=== PATIENT | female | born 1945 | race African-American/Black ===

== ENCOUNTER 2018-06-20 17:16 | Inpatient (IN) | payer OTHER ==
[2018-06-20 17:23] VITALS: BMI 16.6
[2018-06-20] MEDS ORDERED: methylPREDNISolone NA SUCC 125 MG/2 ML VIAL IVPB ONE (17:36)
[2018-06-20] MEDS ORDERED: MAGNESIUM SULF 50% (8.12 MEQ/2 ML-1 GM VIAL) IVPB ONE (17:36)
[2018-06-20] MEDS ORDERED: ALBUTEROL SO4 2.5/IPRATROPIUM 0.5 INH SOL 3 ML VIAL.NEB. NEB ONE ×2 (17:37→20:35)
[2018-06-20] MEDS ORDERED: MAGNESIUM 1GM/D5W - 2 GM/200 ML IVPB IVPB ONE (17:38)
[2018-06-20] MEDS ORDERED: methylPREDNISolone NA SUCC 125 MG/2 ML VIAL ONE (17:38)
[2018-06-20] MEDS: ALBUTEROL SO4 2.5/IPRATROPIUM 0.5 INH SOL 3 ML VIAL.NEB. NEB SCH ×5 (17:38→20:48)
--- NOTE | 2018-06-20 17:39 | PDOC ---
Attending Attestation - Resident Resident Name: ElieVirginia - ED Attending Attestation I have performed the following: I have examined & evaluated the patient, The case was reviewed & discussed with the resident, I agree w/resident's findings & plan, Exceptions are as noted - HPI HPI: 06/20/18 19:16 The patient is a 72 year old female with past medical history of hypertension, COPD (intubated in the past), CAD s/p stents, brain aneurysm who presents with COPD exacerbation x1.5 days. She complains of worsening SOB, wheezing and cough without relief with Prednisone 30mg or Atrovent nebulizers. Denies any fever, chills, nausea, vomiting, diarrhea, chest pain, leg swelling or urinary complaints. - Physicial Exam PE: 06/20/18 19:16 agree with resident exam - Medical Decision Making 06/20/18 19:17 72yo F hx COPD presents to the ED with SOB. Vitals with elevated BP, hypoxic, tachypnea on arrival. Exam with diminished BS b/l and increased WOB. Pt states this feels like her COPD. Pt placed on bipap immediately with in line nebs. Pt also has gotten steroids, duonebs, Mg with imporvement in her breathing. ABG shows mild acidosis to pH 7.35, CO2 40s consistent with mild retention CXR with no evidence of infiltrates Plan to keep pt on bipap, recheck ABG, admit
--- NOTE | 2018-06-20 17:53 | PDOC ---
History of Present Illness - General Chief Complaint: Shortness of Breath Stated Complaint: TROUBLE BREATHING,COPD STAGE YELLOW Time Seen by Provider: 06/20/18 17:25 History Source: Patient Exam Limitations: No Limitations - History of Present Illness Initial Comments: 06/20/18 17:39 72YOF with h/o severe COPD (intubated once in the past in 2014, multiple ICU admissions for this), CAD (s/p stenting), HTN, and brain aneurysm; p/w 1.5 days worsening SOB, wheezing, and cough like all her prior COPD exacerbations. She began taking prednisone from a prior prescription 2 days ago without relief; took 30 mg today. States she tried using her Atrovent nebs at home also without relief. Denies f/c/n/v/d/c, chest pain, abdominal pain, back pain, lightheadedness, leg swelling, orthopnea, or other symptoms. Past History - Past Medical History Allergies/Adverse Reactions: Allergies Allergy/AdvReac Type Severity Reaction Status Date / Time No Known Allergies Allergy Verified 06/20/18 17:22 Home Medications: Ambulatory Orders Amlodipine Besylate [Norvasc -] 5 mg PO DAILY 06/20/18 Aspirin [Aspirin EC] 81 mg PO DAILY 06/20/18 Benzonatate [Tessalon Pearls -] 200 mg PO TID 06/20/18 Fluticasone/Vilanterol [Breo Ellipta 200-25 Mcg INH] 1 puff IH DAILY 06/20/18 Hydroxyzine HCl 25 mg PO PRN 06/20/18 Ipratropium 0.02% Nebulizer [Atrovent] 1 neb NEB TID 06/20/18 Lisinopril [Prinivil] 20 mg PO DAILY 06/20/18 Oxybutynin Chloride [Ditropan Xl] 10 mg PO DAILY 06/20/18 Prednisone 10 mg PO DAILY 06/20/18 Asthma: Yes Cardiac Disorders: Yes COPD: Yes HTN: Yes - Surgical History Abdominal Surgery: Yes Cardiac Surgery: Yes (STENTS: 06/23/14) - Suicide/Smoking/Psychosocial Hx Smoking History: Current every day smoker Have you smoked in the past 12 months: Yes Number of Cigarettes Smoked Daily: 20 If you are a former smoker, when did you quit?: 1 year ago Information on smoking cessation initiated: No 'Breaking Loose' booklet given: 04/28/15 Hx Alcohol Use: No Drug/Substance Use Hx: No Substance Use Type: None Respiratory Specific PMHX - Complaint Specific PMHX Angina: Yes Review of Systems - Review of Systems Able to Perform ROS?: Yes Comments:: 06/20/18 17:43 GEN: no fever, chills, malaise, generalized weakness, or weight change HEENT: no ear pain, sore throat, vision change, or eye pain CV: no chest pain, palpitations, lightheadedness, syncope, or edema RESP: cough, wheezing, SOB GI: no abdominal pain, nausea, vomiting, diarrhea, constipation, or white/black/ bloody stool : no dysuria, hematuria, incontinence, retention, bleeding, or discharge MSK: no neck/back pain, muscle weakness/pain, or joint swelling/pain NEURO: no headache, seizure, vertigo, numbness, tingling, or focal weakness PSYCH: no substance use, no behavior change SKIN: no jaundice, no rash ROS otherwise negative except as noted in HPI *Physical Exam - Vital Signs Last Vital Signs Temp Pulse Resp BP Pulse Ox 98.1 F 138 H 24 H 213/118 H 83 L 06/20/18 17:17 06/20/18 17:17 06/20/18 17:17 06/20/18 17:17 06/20/18 17:17 - Physical Exam Comments: 06/20/18 17:43 GENERAL: moderate distress, moderate respiratory distress, appears frustrated, A /Ox4, no distress, answers questions appropriately, thin, son at bedside HEENT: PERRLA, EOMI, moist mucous membranes NECK/BACK: no midline ttp, no spinal stepoff or deformity, no hematoma, full ROM , neck supple CARDIOVASCULAR: regular rate/rhythm, normal S1S2, no MGR, strong peripheral pulses, capillary refill <2 seconds, extremities wwp, no edema LUNGS/RESPIRATORY: tachypneic, prolonged expiratory phase, tripoding, accessory muscle use, poor air movement, faint wheezes diffusely GI/ABDOMEN: symmetric [id number], normoactive BS, soft, no ttp, no midline pulsatile masses : no CVA tenderness EXTREMITIES: no muscle atrophy, no acute deformity SKIN: warm and dry, no pallor, no jaundice, no rash, no bruising, no skin breakdown, no cuts, no lesions NEUROLOGICAL: GCS 15, CN II-XII grossly intact, 5/5 strength proximally and distally, no facial droop Moderate Sedation - Procedure Monitoring Vital Signs: Procedure Monitoring Vital Signs Temperature 98.1 F 06/20/18 17:17 Pulse Rate 138 H 06/20/18 17:17 Respiratory Rate 24 H 06/20/18 17:17 Blood Pressure 213/118 H 06/20/18 17:17 O2 Sat by Pulse Oximetry (%) 83 L 06/20/18 17:17 Heart Score/ECG Review #1 06/20/18 17:46 Sinus tachycardia, rate 116, normal axis and intervals, right atrial enlargement , no ischemic ST-T changes ED Treatment Course - LABORATORY CBC & Chemistry Diagram: 06/21/18 10:00 06/21/18 10:00 - RADIOLOGY Radiology Studies Ordered: Category Date Time Status CHEST X-RAY PORTABLE* [RAD] Stat Radiology 06/20/18 17:36 Ordered Medical Decision Making - Medical Decision Making 06/20/18 17:55 Pt with h/o COPD p/w SOB and respiratory distress like their prior COPD exacerbation. Initial Vital Signs Temp Pulse Resp BP Pulse Ox 98.1 F 138 H 24 H 213/118 H 83 L 06/20/18 17:17 06/20/18 17:17 06/20/18 17:17 06/20/18 17:17 06/20/18 17:17 Exam: As noted in Physical Exam section. DDX IBNLT: COPD, bronchitis, asthma, viral URI, influenza, PNA, PTX, CHF, ACS, PE, pericarditis, pneumonitis, allergic rxn W/U ordered: CBCD CMP Mg Phos Cardiac panel Blood gas EKG CXR TX ordered: DuoNebs SoluMedrol (if likely admission) Magnesium Supplemental O2 to keep pulse ox at 92% Will consider BiPAP, IM terbutaline, Magnesium 2 GM IV over 20 min if necessary Will attempt to avoid intubation d/t high risk of complications with COPD Pt. If intubation is indicated, will keep low VT, low RR, minimize auto PEEP, prolong E:I. Patient will need admission given her complex history and marked respiratory distress. EKG: Reviewed; results as noted in ECG Review section. CXR: Hyperinflation but nothing acute. Laboratory Tests 06/20/18 06/20/1819 17:40 17:40 18:05 WBC 8.6 RBC 4.26 Hgb 11.8 Hct 35.7 MCV 83.9 MCH 27.7 MCHC 33.0 RDW 16.7 H Plt Count 424 MPV 7.1 L Absolute Neuts (auto) 6.8 Neutrophils % 79.0 Lymphocytes % 14.0 D Monocytes % 6.9 D Eosinophils % 0.0 Basophils % 0.1 D Nucleated RBC % 0 Puncture Site Right radial ABG pH 7.34 L ABG pCO2 at Pt Temp 48.7 H D ABG pO2 at Pt Temp 173.0 H* D ABG HCO3 25.5 ABG O2 Sat (Measured) 99.0 H ABG O2 Content 15.8 ABG Base Excess -0.1 Ervin Test Positive Carboxyhemoglobin 0.8 Methemoglobin 0.2 L Oxygen Flow Rate Yes Vent Mode Bi pap s/t Sodium 142 Potassium 4.1 Chloride 106 Carbon Dioxide 29 Anion Gap 7 L BUN 19 H Creatinine 0.9 Creat Clearance w eGFR > 60 Random Glucose 148 H Calcium 9.2 Phosphorus 3.7 Magnesium 1.9 Total Bilirubin 0.3 AST 17 ALT 19 Alkaline Phosphatase 84 Creatine Kinase 109 Troponin I < 0.02 Total Protein 7.6 Albumin 3.8 Reassessment: Patient appears much more comfortable, smiling, continues on BiPAP. Vital Signs - 24 hr 06/20/18 06/20/18 06/20/18 17:17 17:45 18:00 Temperature 98.1 F Pulse Rate 138 H Pulse Rate [ Apical] Respiratory 24 H Rate Blood Pressure 213/118 H Blood Pressure [Right Arm] O2 Sat by Pulse 83 L 98 99 Oximetry (%) 06/20/18 18:35 Temperature Pulse Rate Pulse Rate [ 115 H Apical] Respiratory 16 Rate Blood Pressure Blood Pressure 165/97 [Right Arm] O2 Sat by Pulse 100 Oximetry (%) 06/20/18 18:30 The Pts symptoms persist despite ED treatments. They are not safe for discharge from the ED at this time. They require further hospital observation, workup, and treatment. Microblog sent to [facility] for admission. Blank Decision to Admit order is placed per ED protocol. 06/20/18 19:20 Spoke with admitting team medical detail representative Liliana Paris, in agreement Pt to be admitted. Decision to Admit order corrected with admitting team covering attendings name. *DC/Admit/Observation/Transfer Diagnosis at time of Disposition: COPD exacerbation - Discharge Dispostion Condition at time of disposition: Guarded Decision to Admit order: Yes - Referrals - Patient Instructions - Post Discharge Activity
[2018-06-20 18:08] LABS: BASO % 0.1 % (0-2.0); HEMATOCRIT 35.7 % (32.4-45.2); HEMOGLOBIN 11.8 GM/dL (10.7-15.3); MCH 27.7 pg (25.7-33.7); MEAN CELL VOLUME 83.9 fl (80-96); MEAN PLT VOLUME 7.1 fl (7.5-11.1); MONO % 6.9 % (3.8-10.2); PLATELET COUNT 424 K/MM3 (134-434); RBC 4.26 M/mm3 (3.60-5.2); RDW 16.7 % (11.6-15.6); WHITE BLOOD COUNT 8.6 K/mm3 (4.0-10.0)
[2018-06-20 18:11] LABS: ARTERIAL BLOOD GAS BASE EXCESS -0.1 meq/l (-2-2); ARTERIAL BLOOD GAS PCO2 48.7 mmHg (35-45); ARTERIAL BLOOD GAS pH 7.34 (7.35-7.45); CARBOXYHEMOGLOBIN 0.8 gm% (0.5-2.0)
[2018-06-20 18:16] LABS: ALLENS TEST POSITIVE
[2018-06-20 18:47] LABS: ALBUMIN 3.8 g/dl (3.4-5.0); ALK PHOS 84 U/L (45-117); ANION GAP 7 MMOL/L (8-16); BILIRUBIN,TOTAL 0.3 mg/dL (0.2-1); BLOOD UREA NITROGEN 19 mg/dL (7-18); CALCIUM 9.2 mg/dL (8.5-10.1); CHLORIDE 106 mmol/L (98-107); CO2 29 mmol/L (21-32); CREATININE 0.9 mg/dL (0.55-1.3); GLUCOSE,RANDOM 148 mg/dL (74-106); MAGNESIUM 1.9 mg/dL (1.8-2.4); PHOSPHOROUS 3.7 mg/dL (2.5-4.9); POTASSIUM 4.1 mmol/L (3.5-5.1); SGOT/AST 17 U/L (15-37); SGPT/ALT 19 U/L (13-61); SODIUM 142 mmol/L (136-145); TOT PROT 7.6 g/dl (6.4-8.2)
[2018-06-20] MEDS ORDERED: ALBUTEROL SO4 0.083% IH SOL 2.5 MG/3 ML VIAL.NEB. NEB PRN (19:58)
[2018-06-20] MEDS ORDERED: methylPREDNISolone NA SUCC 40 MG/1 ML VIAL IVPUSH SCH (20:15)
--- NOTE | 2018-06-20 20:39 | HP ---
CHIEF COMPLAINT: SOB x 3 days PCP: HISTORY OF PRESENT ILLNESS: 72 y/o F with PMH past severe COPD exacerbations (intubated, in ICU 2014), on 1.5L home 02 at night, never on BiPAP, CAD s/p 2 stents (2014), HTN, brain aneurysm (20 yrs ago; clipped), who presents to the ED c/o SOB over the past three days. As per pt, she lives in [place] with her grandchildren, however has been in the [place] area the last month visiting her son. States that her grandson was sick with a "bronchial illness" w/cough, and she subsequently also developed a productive cough (clear sputum, no blood). Over the past three days , she endorses SOB and wheezing which was not alleviated by atrovent nebs. In the interim, she also spoke to her pulm, Dr. Mcnamara who recommended a steroid taper for her sx. She was currently on the first day of the 30mg dose of prednisone (already took 40,40), however since it was not working, she came to the ED for further evaluation. Denies KOTHARI, fever, chills, chest pain or pressure , or changes in urinary or bowel function. As per ED staff, when she came in she was tripoding, SOB and hypoxic into the low 80's while on 2-3 L NC 02. Has not been able to take her Breo over the past two weeks as well, since her dog chewed it. Also, endorses COPD exacerbations when exposed to sick contacts. ER course was notable for: (1) Mg, medrol 125, nebs (2) BiPAP 8/5, 40%, RR 8 (3) Recent Travel: from [place] one month ago PAST MEDICAL HISTORY: as above PAST SURGICAL HISTORY: CAD s/p 2 stents (2014), lap tamara 1979's, 2 c-sections Social History: used to work for [employer] in [employer] Smokin pack/day x 50 yrs. states that she has "mostly quit" however sometimes has a few cigarettes Alcohol: denies Drugs: denies Family History: adopted Allergies No Known Allergies Allergy (Verified 06/20/18 17:22) HOME MEDICATIONS: Home Medications Medication Instructions Recorded Amlodipine Besylate [Norvasc -] 5 mg PO DAILY 06/20/18 Aspirin [Aspirin EC] 81 mg PO DAILY 06/20/18 Benzonatate [Tessalon Pearls -] 200 mg PO TID 06/20/18 Fluticasone/Vilanterol [Breo 1 puff IH DAILY 06/20/18 Ellipta 200-25 Mcg INH] Hydroxyzine HCl 25 mg PO PRN 06/20/18 Ipratropium 0.02% Nebulizer 1 neb NEB TID 06/20/18 [Atrovent] Lisinopril [Prinivil] 20 mg PO DAILY 06/20/18 Oxybutynin Chloride [Ditropan Xl] 10 mg PO DAILY 06/20/18 Prednisone was put on steroid taper by her pulm 40mg,40mg, was on 30mg today. 06/20/18 medications have been verified with patient verbally REVIEW OF SYSTEMS CONSTITUTIONAL: Absent: fever, chills, diaphoresis, generalized weakness, malaise, loss of appetite, weight change HEENT: Absent: rhinorrhea, nasal congestion, throat pain, throat swelling, difficulty swallowing, mouth swelling, ear pain, eye pain, visual changes CARDIOVASCULAR: Absent: chest pain, syncope, palpitations, irregular heart rate, lightheadedness , peripheral edema RESPIRATORY: +cough, SOB, wheezing Absent: dyspnea with exertion, orthopnea, stridor, hemoptysis GASTROINTESTINAL: Absent: abdominal pain, abdominal distension, nausea, vomiting, diarrhea, constipation, melena, hematochezia GENITOURINARY: Absent: dysuria, frequency, urgency, hesitancy, hematuria, flank pain, genital pain MUSCULOSKELETAL: Absent: myalgia, arthralgia, joint swelling, back pain, neck pain SKIN: Absent: rash, itching, pallor HEMATOLOGIC/IMMUNOLOGIC: Absent: easy bleeding, easy bruising, lymphadenopathy, frequent infections ENDOCRINE: Absent: unexplained weight gain, unexplained weight loss, heat intolerance, cold intolerance NEUROLOGIC: Absent: headache, focal weakness or paresthesias, dizziness, unsteady gait, seizure, mental status changes, bladder or bowel incontinence PSYCHIATRIC: Absent: anxiety, depression, suicidal or homicidal ideation, hallucinations. PHYSICAL EXAMINATION Vital Signs 06/20/18 17:17 Temperature 98.1 F Pulse Rate 138 H Pulse Rate [ Apical] Respiratory 24 H Rate Blood Pressure 213/118 H Blood Pressure [Right Arm] O2 Sat by Pulse 83 L Oximetry (%) 06/20/18 18:35 Temperature Pulse Rate Pulse Rate [ 115 H Apical] Respiratory 16 Rate Blood Pressure Blood Pressure 165/97 [Right Arm] O2 Sat by Pulse 100 Oximetry (%) GENERAL: Sitting up in bed, on BiPAP. In good spirits, in NAD HEAD: Normal with no signs of trauma. EYES: Pupils equal, round and reactive to light, extraocular movements intact, sclera anicteric, conjunctiva clear. EARS, NOSE, THROAT: Ears normal, nares patent, oropharynx clear without exudates. Moist mucous membranes. NECK: Normal range of motion, supple LUNGS: +wheezing b/l appreciated anteriorly. no accessory m usage HEART: +tachycardic rate and rhythm, normal S1 and S2 without murmur, rub or gallop. ABDOMEN: Soft, nontender, not distended, normoactive bowel sounds, no guarding, no rebound, no masses LOWER EXTREMITIES: 2+ pt pulses, warm, well-perfused. No calf tenderness. No peripheral edema. NEUROLOGICAL: Cranial nerves II-XII intact. normal speech. 5/5 motor strength UE, LE. sensation intact PSYCHIATRIC: Cooperative. Good eye contact. SKIN: Warm, dry, normal turgor Laboratory Results - last 24 hr 06/20/18 06/20/18 06/20/18 17:40 17:40 18:05 WBC 8.6 RBC 4.26 Hgb 11.8 Hct 35.7 MCV 83.9 MCH 27.7 MCHC 33.0 RDW 16.7 H Plt Count 424 MPV 7.1 L Absolute Neuts (auto) 6.8 Neutrophils % 79.0 Lymphocytes % 14.0 D Monocytes % 6.9 D Eosinophils % 0.0 Basophils % 0.1 D Nucleated RBC % 0 Puncture Site Right radial ABG pH 7.34 L ABG pCO2 at Pt Temp 48.7 H D ABG pO2 at Pt Temp 173.0 H* D ABG HCO3 25.5 ABG O2 Sat (Measured) 99.0 H ABG O2 Content 15.8 ABG Base Excess -0.1 Ervin Test Positive Carboxyhemoglobin 0.8 Methemoglobin 0.2 L Oxygen Flow Rate Yes Vent Mode Bi pap s/t Sodium 142 Potassium 4.1 Chloride 106 Carbon Dioxide 29 Anion Gap 7 L BUN 19 H Creatinine 0.9 Creat Clearance w eGFR > 60 Random Glucose 148 H Calcium 9.2 Phosphorus 3.7 Magnesium 1.9 Total Bilirubin 0.3 AST 17 ALT 19 Alkaline Phosphatase 84 Creatine Kinase 109 Troponin I < 0.02 Total Protein 7.6 Albumin 3.8 CXR: hyperinflated lung lopez, with R sided atelectasis, no infiltrates. my read - official pending EKG: +sinus tach, RA enlargement, no st-t wave changes. rate 116bpm, Qtc 453ms past chest CT (2014): moderate emphysema/COPD. minimal atelectatic changes and interstitial thickening in the RLL, laterally without evidence of focal infiltrates, pulm nodules, pneumothorax or pleural effusion. s/p tamara. ASSESSMENT/PLAN: 72 y/o F with PMH past severe COPD exacerbations (intubated, in ICU 2014), on 1.5L home 02 at night, never on BiPAP, CAD s/p 2 stents (2014), HTN, brain aneurysm (20 yrs ago; clipped), who presents to the ED c/o SOB over the past three days. #COPD exacerbation likely 2/2 URI -with recent sick contact- grandson, and typical presentation. may also be 2/2 breo noncompliance over last 2 weeks- without coverage. tripoding, wheezing, SOB. greatly improved with medrol 125mg -since hx past intubation, will start on medrol 60mg IVP TID -weaned off bipap, ABG close to WNL . put on 2L NC 02. keep 02 88-92%. can keep biPAP PRN on standby if sat drops -c/w duonebs, nebs -can start breo on d/c, as do not need extra ICS at this time as on medrol #CAD s/p 2 stents (2014) -c/w asa 81mg qd #HTN- uncontrolled -likely 2/2 noncompliance; pt was unable to take BP meds d/t inability to ambulate from SOB -c/w norvasc, lisinopril #F/E/N no indication for fluids at this time continue to follow lytes NPO except meds for now d/t resp status. can advance in AM if continues to improve #PPX DVT: SCD's #Dispo med-surg obs Visit type - Emergency Visit Emergency Visit: Yes ED Registration Date: 06/20/18 Care time: The patient presented to the Emergency Department on the above date and was hospitalized for further evaluation of their emergent condition. - New Patient This patient is new to me today: Yes Date on this admission: 06/21/18 - Critical Care Critical Care patient: No
--- NOTE | 2018-06-20 20:48 | PN ---
Teaching Attending Note Name of Resident: Liliana Paris ATTENDING PHYSICIAN STATEMENT I saw and evaluated the patient. I reviewed the resident's note and discussed the case with the resident. I agree with the resident's findings and plan as documented. SUBJECTIVE: This is a 72 year old woman with a history of COPD, chronic hypoxic respiratory failure, CAD, stents, HTN, brain aneurysm and clipping who comes to the ED complaining of SOB. She lives in [place] with her grandchildren. She has been around her grandson who has had a cough. She has been visiting her son in [place] for the past month. She has not used her Breo in about 2 weeks. She has had a productive cough with clear sputum. Three days ago, she started wheezing and began to feel SOB. She used Atrovent nebulizer treatments without improvement. She spoke to her home health care social worker in [place] who prescribed a Prednisone taper. She took 40 mg daily x 2 days, and today, started 30 mg. She still didn't feel beter, so she came to the ED. She denies fever, chills, chest pain, palpitations , hemoptysis. In the ED, she was treated with SoluMedrol, magnesium sulfate, DuoNeb, and BiPAP. She is feeling better. OBJECTIVE: Vital Signs Period Temp Pulse Resp BP Sys/Nielsen Pulse Ox Last 24 Hr 98.1 F 115-138 16-24 165-213/97-118 83-100 HEART: S1S2, tachycardic LUNGS: Bilateral rhonchi and expiratory wheezes ABDOMEN: Soft, non-tender, non-distended, normal BS EXTREMITIES: No edema Laboratory Tests 06/20/18 06/20/18 06/20/18 17:40 17:40 18:05 WBC 8.6 RBC 4.26 Hgb 11.8 Hct 35.7 MCV 83.9 MCH 27.7 MCHC 33.0 RDW 16.7 H Plt Count 424 MPV 7.1 L Absolute Neuts (auto) 6.8 Neutrophils % 79.0 Lymphocytes % 14.0 D Monocytes % 6.9 D Eosinophils % 0.0 Basophils % 0.1 D Nucleated RBC % 0 Puncture Site Right radial ABG pH 7.34 L ABG pCO2 at Pt Temp 48.7 H D ABG pO2 at Pt Temp 173.0 H* D ABG HCO3 25.5 ABG O2 Sat (Measured) 99.0 H ABG O2 Content 15.8 ABG Base Excess -0.1 Ervin Test Positive Carboxyhemoglobin 0.8 Methemoglobin 0.2 L Oxygen Flow Rate Yes Vent Mode Bi pap s/t Sodium 142 Potassium 4.1 Chloride 106 Carbon Dioxide 29 Anion Gap 7 L BUN 19 H Creatinine 0.9 Creat Clearance w eGFR > 60 Random Glucose 148 H Calcium 9.2 Phosphorus 3.7 Magnesium 1.9 Total Bilirubin 0.3 AST 17 ALT 19 Alkaline Phosphatase 84 Creatine Kinase 109 Troponin I < 0.02 Total Protein 7.6 Albumin 3.8 Home Medications Medication Instructions Recorded Amlodipine Besylate [Norvasc -] 5 mg PO DAILY 06/20/18 Aspirin [Aspirin EC] 81 mg PO DAILY 06/20/18 Benzonatate [Tessalon Pearls -] 200 mg PO TID 06/20/18 Fluticasone/Vilanterol [Breo 1 puff IH DAILY 06/20/18 Ellipta 200-25 Mcg INH] Hydroxyzine HCl 25 mg PO PRN 06/20/18 Ipratropium 0.02% Nebulizer 1 neb NEB TID 06/20/18 [Atrovent] Lisinopril [Prinivil] 20 mg PO DAILY 06/20/18 Oxybutynin Chloride [Ditropan Xl] 10 mg PO DAILY 06/20/18 Prednisone 10 mg PO DAILY 06/20/18 ASSESSMENT AND PLAN: This is a 72 year old woman with a history of COPD, chronic hypoxic respiratory failure, CAD, stents, HTN, brain aneurysm and clipping who presented to the ED with a productive cough, SOB, and wheezing. 1. Acute on chronic hypercapnic and hypoxic respiratory failure secondary to acute exacerbation of COPD - Start SoluMedrol, DuoNeb - Hold Breo, Atrovent - Oxygen to maintain saturation >90% - BiPAP as needed 2. CAD, history of stents - Continue aspirin 3. HTN - Continue lisinopril, Norvasc 4. History of brain aneurysm and clipping
[2018-06-21] MEDS: methylPREDNISolone NA SUCC 40 MG/1 ML VIAL IVPUSH SCH ×3 (01:11→18:39)
[2018-06-21] MEDS: ALBUTEROL SO4 2.5/IPRATROPIUM 0.5 INH SOL 3 ML VIAL.NEB. NEB SCH ×4 (07:20→20:15)
--- NOTE | 2018-06-21 08:10 | PN ---
Progress Note, Physician Chief Complaint: Feels improved, still SOB History of Present Illness: 72 y/o F with PMH past severe COPD exacerbations (intubated, in ICU 2014), on 1.5L home 02 at night, never on BiPAP, CAD s/p 2 stents (2014), HTN, brain aneurysm (20 yrs ago; clipped), who presents to the ED c/o SOB over the past three days. - Current Medication List Current Medications: Active Medications Albuterol Sulfate (Ventolin 0.083% Nebulizer Soln -) 1 amp NEB Q6H PRN PRN Reason: SHORTNESS OF BREATH Albuterol/Ipratropium (Duoneb -) 1 amp NEB RQID SHAHEED Last Admin: 06/20/18 20:48 Dose: 1 amp Amlodipine Besylate (Norvasc -) 5 mg PO DAILY SHAHEED Aspirin (Ecotrin -) 81 mg PO DAILY SHAHEED Lisinopril (Prinivil) 20 mg PO DAILY [facility] Methylprednisolone Sodium Succinate (Solu-Medrol -) 60 mg IVPUSH Q8H-IV SHAHEED Last Admin: 06/21/18 01:11 Dose: 60 mg Solifenacin (Vesicare -) 5 mg PO DAILY [facility] - Objective Vital Signs: Vital Signs Temperature 98.4 F 06/21/18 06:00 Pulse Rate 105 H 06/21/18 06:00 Respiratory Rate 18 06/21/18 06:00 Blood Pressure 138/70 06/21/18 06:00 O2 Sat by Pulse Oximetry (%) 97 06/21/18 07:00 Elderly F not in distress HEENT: Mm moist, no anemia, PERRLA EOMI NECK: No JVd No Bruit CHEST: Minimal wheezes + CVS; S1S2 R ABD: No distention, non tender Bs + EXT: No edema feet, no calf tenderness, Pulses + [employer]: AOX3 non focal Constitutional: Yes: Well Nourished Labs: CBC, BMP 06/20/18 17:40 06/20/18 17:40 Problem List - Problems (1) COPD exacerbation Assessment/Plan: On home O2 improving on current mangement cont IV steroids and Nebs F/U Respiratory recommondations Code(s): J44.1 - CHRONIC OBSTRUCTIVE PULMONARY DISEASE W (ACUTE) EXACERBATION (2) CAD (coronary artery disease) Assessment/Plan: Stable cont ASA Statin and all home meds Code(s): I25.10 - ATHSCL HEART DISEASE OF [place] CORONARY ARTERY W/O ANG PCTRS (3) Anxiety Assessment/Plan: Cont Home meds Code(s): F41.9 - ANXIETY DISORDER, UNSPECIFIED
--- NOTE | 2018-06-21 10:02 | CON.PULM ---
Consult Consult Specialty:: PULM/CCM Referred by:: Hospitalist Reason for Consultation:: SOB - History of Present Illness Chief Complaint: SOB History of Present Illness: 72 F, visiting [place] from [place]. Active smoker, severe COPD on 1.5L home 02 at night for almost 1.5 years, history of intubation in 2014, CAD s/p 2 stents ( 2014), HTN, brain aneurysm (20 yrs ago; clipped). Patient had a CT chest in 08/2017 and 09/2017 (has medical record access on phone) . Moderate emphysema, resolving infiltrates, no nodules or mass lesions. Reports that her grandson has had bronchitis symptoms. She said her dog ate her Breo about 2 weeks ago and she could not refill her meds. She has taken 2 days of Prednisone 40mg as recommended by her principal network architect Dr. Mcnamara. No fever or chills. No hemoptysis. 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 No: Pulmonary Embolus, Sleep Apnea ...: No Psych: Yes: Anxiety - Past Surgical History Past Surgical History: Yes: Cholecystectomy, (x2), Stent (06/2014). No : Colonoscopy (advised mult times by dr. walter/debbi to do so but hasn't) - Alcohol/Substance Use Hx Alcohol Use: No - Smoking History Smoking history: Current every day smoker Have you smoked in the past 12 months: Yes Aproximately how many cigarettes per day: 20 If you are a former smoker, when did you quit?: 1 year ago - Social History History of Recent Travel: No Home Medications - Allergies Allergies/Adverse Reactions: Allergies Allergy/AdvReac Type Severity Reaction Status Date / Time No Known Allergies Allergy Verified 06/20/18 17:22 - Home Medications Home Medications: Ambulatory Orders Amlodipine Besylate [Norvasc -] 5 mg PO DAILY 06/20/18 Aspirin [Aspirin EC] 81 mg PO DAILY 06/20/18 Benzonatate [Tessalon Pearls -] 200 mg PO TID 06/20/18 Fluticasone/Vilanterol [Breo Ellipta 200-25 Mcg INH] 1 puff IH DAILY 06/20/18 Hydroxyzine HCl 25 mg PO PRN 06/20/18 Ipratropium 0.02% Nebulizer [Atrovent] 1 neb NEB TID 06/20/18 Lisinopril [Prinivil] 20 mg PO DAILY 06/20/18 Oxybutynin Chloride [Ditropan Xl] 10 mg PO DAILY 06/20/18 Prednisone 10 mg PO DAILY 06/20/18 Review of Systems - Review of Systems Constitutional: reports: Malaise. denies: Chills, Fever, Loss of Appetite, Night Sweats, Unintentional Wgt. Loss, Weakness Eyes: reports: No Symptoms HENT: reports: No Symptoms Neck: reports: No Symptoms Cardiovascular: reports: Shortness of Breath. denies: Chest Pain, Edema, Palpitations Respiratory: reports: Cough, SOB, SOB on Exertion, Wheezing. denies: Hemoptysis , Snoring Gastrointestinal: reports: No Symptoms Genitourinary: reports: No Symptoms Breasts: reports: No Symptoms Reported Musculoskeletal: reports: No Symptoms Integumentary: reports: No Symptoms Neurological: reports: No Symptoms Endocrine: reports: No Symptoms Hematology/Lymphatic: reports: No Symptoms Psychiatric: reports: No Symptoms Physical Exam Vital Sings: Vital Signs Temperature 98.4 F 06/21/18 06:00 Pulse Rate 105 H 06/21/18 06:00 Respiratory Rate 18 06/21/18 06:00 Blood Pressure 138/70 06/21/18 06:00 O2 Sat by Pulse Oximetry (%) 97 06/21/18 07:00 Constitutional: Yes: Mild Distress, Thin Eyes: Yes: Conjunctiva Clear, EOM Intact HENT: Yes: Atraumatic, Normocephalic Neck: Yes: Supple, Trachea Midline Cardiovascular: Yes: Tachycardia Respiratory: Yes: Accessory Muscle Use, Cough, Diminished, On Nasal O2, Rhonchi , SOB, SOB on Exertion, Tachypnea, Wheezes. No: Rales, Stridor ...Inspection: Yes: WNL ...Clubbing: No Gastrointestinal: Yes: Normal Bowel Sounds, Soft Renal/: Yes: WNL Musculoskeletal: Yes: WNL Extremities: Yes: WNL Edema: No Peripheral Pulses WNL: Yes Integumentary: Yes: WNL Neurological: Yes: WNL, Alert, Oriented ...Motor Strength: WNL Psychiatric: Yes: WNL, Alert, Oriented Labs: CBC, BMP 06/20/18 17:40 06/20/18 17:40 ABG Results ABG pH 7.34 (7.35-7.45) L 06/20/18 18:05 ABG pCO2 at Pt Temp 48.7 mmHg (35-45) H D 06/20/18 18:05 ABG pO2 at Pt Temp 173.0 mmHg (70-100) H* D 06/20/18 18:05 ABG HCO3 25.5 meq/L (22-26) 06/20/18 18:05 ABG O2 Sat (Measured) 99.0 % (90-98.9) H 06/20/18 18:05 ABG O2 Content 15.8 % vol (15-22) 06/20/18 18:05 ABG Base Excess -0.1 meq/l (-2-2) 06/20/18 18:05 Imaging - Results Chest X-ray: Report Reviewed, Image Reviewed Problem List - Problems (1) Smoker Code(s): F17.200 - NICOTINE DEPENDENCE, UNSPECIFIED, UNCOMPLICATED (2) Acute exacerbation of chronic obstructive pulmonary disease (COPD) Code(s): J44.1 - CHRONIC OBSTRUCTIVE PULMONARY DISEASE W (ACUTE) EXACERBATION (3) COPD exacerbation Code(s): J44.1 - CHRONIC OBSTRUCTIVE PULMONARY DISEASE W (ACUTE) EXACERBATION (4) Anxiety Code(s): F41.9 - ANXIETY DISORDER, UNSPECIFIED (5) CAD (coronary artery disease) Code(s): I25.10 - ATHSCL HEART DISEASE OF [place] CORONARY ARTERY W/O ANG PCTRS (6) Stented coronary artery Code(s): Z95.5 - PRESENCE OF CORONARY ANGIOPLASTY IMPLANT AND GRAFT Assessment/Plan IV Medrol due to outpatient prednisone failure Duoneb O2 as needed to maintain saturation: 88% to 92% Would monitor off ABX Check viral screen No smoking discussed Patient to follow with her Supervisor [employer] in [place] Will follow Thank you. Dr Reyes
[2018-06-21] MEDS ORDERED: PT OWN MED DRAWER 7, Y5N ONE (10:07)
[2018-06-21] MEDS: SOLIFENACIN SUCCINATE 5 MG TAB (FP) PO SCH (10:09)
[2018-06-21] MEDS: amLODIPine BESYLATE 5 MG TABLET (FP) PO SCH (10:09)
[2018-06-21] MEDS: ASPIRIN COATED 81 MG TABLET.EC PO SCH (10:09)
[2018-06-21] MEDS: LISINOPRIL 20 MG TABLET (FP) PO SCH (10:09)
[2018-06-21 10:17] LABS: BASO % 0.1 % (0-2.0); HEMATOCRIT 33.1 % (32.4-45.2); LYMPH % 10.4 % (8-40); MCH 27.7 pg (25.7-33.7); MCHC 33.2 g/dl (32.0-36.0); MEAN CELL VOLUME 83.4 fl (80-96); MEAN PLT VOLUME 6.8 fl (7.5-11.1); MONO % 8.4 % (3.8-10.2); NEUT % 81.1 % (42.8-82.8); PLATELET COUNT 400 K/MM3 (134-434); RBC 3.96 M/mm3 (3.60-5.2); RDW 16.7 % (11.6-15.6); WHITE BLOOD COUNT 7.6 K/mm3 (4.0-10.0)
[2018-06-21 10:42] LABS: ANION GAP 10 MMOL/L (8-16); BLOOD UREA NITROGEN 26 mg/dL (7-18); CALCIUM 9.3 mg/dL (8.5-10.1); CHLORIDE 105 mmol/L (98-107); CO2 28 mmol/L (21-32); CREATININE 1.2 mg/dL (0.55-1.3); GLUCOSE,RANDOM 171 mg/dL (74-106); MAGNESIUM 2.3 mg/dL (1.8-2.4); PHOSPHOROUS 4.4 mg/dL (2.5-4.9); POTASSIUM 3.6 mmol/L (3.5-5.1); SODIUM 142 mmol/L (136-145)
[2018-06-22] MEDS: methylPREDNISolone NA SUCC 40 MG/1 ML VIAL IVPUSH SCH ×2 (02:30→10:04)
[2018-06-22] MEDS: ALBUTEROL SO4 2.5/IPRATROPIUM 0.5 INH SOL 3 ML VIAL.NEB. NEB SCH ×4 (07:20→19:56)
[2018-06-22 07:48] LABS: BASO % 0.1 % (0-2.0); HEMOGLOBIN 9.7 GM/dL (10.7-15.3); LYMPH % 10.4 % (8-40); MCHC 32.4 g/dl (32.0-36.0); MEAN CELL VOLUME 83.3 fl (80-96); MEAN PLT VOLUME 6.9 fl (7.5-11.1); MONO % 8.8 % (3.8-10.2); NEUT % 80.7 % (42.8-82.8); PLATELET COUNT 353 K/MM3 (134-434); RBC 3.61 M/mm3 (3.60-5.2); RDW 16.8 % (11.6-15.6); WHITE BLOOD COUNT 9.9 K/mm3 (4.0-10.0)
[2018-06-22 08:12] LABS: ANION GAP 6 MMOL/L (8-16); BLOOD UREA NITROGEN 29 mg/dL (7-18); CALCIUM 8.5 mg/dL (8.5-10.1); CHLORIDE 105 mmol/L (98-107); CO2 31 mmol/L (21-32); CREATININE 0.9 mg/dL (0.55-1.3); GLUCOSE,RANDOM 101 mg/dL (74-106); POTASSIUM 4.1 mmol/L (3.5-5.1); SODIUM 142 mmol/L (136-145)
--- NOTE | 2018-06-22 09:13 | PN ---
Progress Note (short form) - Note Progress Note: Feels better today. Less SOB. Was placed on NIPPV with good effect as she slept well overnight. No CP. Intake & Output 06/19/18 06/20/18 06/21/18 06/22/18 23:59 23:59 23:59 23:59 Intake Total 0 1080 200 Balance 0 1080 200 Weight 97 lb Last Vital Signs Temp Pulse Resp BP Pulse Ox 98.1 F 104 H 20 111/77 96 06/22/18 06:00 06/22/18 06:00 06/22/18 06:00 06/22/18 06:00 06/22/18 06:00 Active Medications Albuterol Sulfate (Ventolin 0.083% Nebulizer Soln -) 1 amp NEB Q6H PRN PRN Reason: SHORTNESS OF BREATH Albuterol/Ipratropium (Duoneb -) 1 amp NEB RQID [facility] Last Admin: 06/22/18 07:20 Dose: 1 amp Amlodipine Besylate (Norvasc -) 5 mg PO DAILY [facility] Last Admin: 06/21/18 10:09 Dose: 5 mg Aspirin (Ecotrin -) 81 mg PO DAILY [facility] Last Admin: 06/21/18 10:09 Dose: 81 mg Lisinopril (Prinivil) 20 mg PO DAILY [facility] Last Admin: 06/21/18 10:09 Dose: 20 mg Methylprednisolone Sodium Succinate (Solu-Medrol -) 60 mg IVPUSH Q8H-IV [facility] Last Admin: 06/22/18 02:30 Dose: 60 mg Solifenacin (Vesicare -) 5 mg PO DAILY [facility] Last Admin: 06/21/18 10:09 Dose: 5 mg Constitutional: Yes: More comfortable today, mildly tachypneic at rest Eyes: Yes: Conjunctiva Clear, EOM Intact HENT: Yes: Atraumatic, Normocephalic Neck: Yes: Supple, Trachea Midline Cardiovascular: Yes: Tachycardia Respiratory: Yes: Cough, Diminished, On Nasal O2, Rhonchi, Tachypnea, Wheezes. No: Rales, Stridor ...Inspection: Yes: WNL ...Clubbing: No Gastrointestinal: Yes: Normal Bowel Sounds, Soft Renal/: Yes: WNL Musculoskeletal: Yes: WNL Extremities: Yes: WNL Edema: No Peripheral Pulses WNL: Yes Integumentary: Yes: WNL Neurological: Yes: WNL, Alert, Oriented ...Motor Strength: WNL Psychiatric: Yes: WNL, Alert, Oriented Labs: Laboratory Results - last 24 hr 06/21/18 06/21/18 06/21/18 10:00 10:00 10:15 WBC 7.6 RBC 3.96 Hgb 11.0 Hct 33.1 MCV 83.4 MCH 27.7 MCHC 33.2 RDW 16.7 H Plt Count 400 MPV 6.8 L Absolute Neuts (auto) 6.1 Neutrophils % 81.1 Lymphocytes % 10.4 D Monocytes % 8.4 Eosinophils % 0.0 Basophils % 0.1 Nucleated RBC % 0 Sodium 142 Potassium 3.6 Chloride 105 Carbon Dioxide 28 Anion Gap 10 BUN 26 H Creatinine 1.2 Creat Clearance w eGFR 44.41 Random Glucose 171 H Calcium 9.3 Phosphorus 4.4 Magnesium 2.3 Influenza A (Rapid) Negative Influenza B (Rapid) Negative RSV Rapid 06/21/18 06/22/18 06/22/18 10:15 07:00 07:00 WBC 9.9 RBC 3.61 Hgb 9.7 L Hct 30.0 L MCV 83.3 MCH 27.0 MCHC 32.4 RDW 16.8 H Plt Count 353 MPV 6.9 L Absolute Neuts (auto) 8.0 Neutrophils % 80.7 Lymphocytes % 10.4 Monocytes % 8.8 Eosinophils % 0.0 Basophils % 0.1 Nucleated RBC % 0 Sodium 142 Potassium 4.1 Chloride 105 Carbon Dioxide 31 Anion Gap 6 L BUN 29 H Creatinine 0.9 Creat Clearance w eGFR > 60 Random Glucose 101 Calcium 8.5 Phosphorus Magnesium Influenza A (Rapid) Influenza B (Rapid) RSV Rapid Positive Problem List - Problems (1) Smoker Code(s): F17.200 - NICOTINE DEPENDENCE, UNSPECIFIED, UNCOMPLICATED (2) Acute exacerbation of chronic obstructive pulmonary disease (COPD) Code(s): J44.1 - CHRONIC OBSTRUCTIVE PULMONARY DISEASE W (ACUTE) EXACERBATION (3) COPD exacerbation Code(s): J44.1 - CHRONIC OBSTRUCTIVE PULMONARY DISEASE W (ACUTE) EXACERBATION (4) Anxiety Code(s): F41.9 - ANXIETY DISORDER, UNSPECIFIED (5) CAD (coronary artery disease) Code(s): I25.10 - ATHSCL HEART DISEASE OF [place] CORONARY ARTERY W/O ANG PCTRS (6) Stented coronary artery Code(s): Z95.5 - PRESENCE OF CORONARY ANGIOPLASTY IMPLANT AND GRAFT Assessment/Plan (+) RSV IV Medrol same dose Duoneb O2 as needed to maintain saturation: 88% to 92% Would continue to monitor off ABX No smoking Patient 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 with 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 Examiner in [place] Dr Reyes Problem List - Problems (1) Smoker Code(s): F17.200 - NICOTINE DEPENDENCE, UNSPECIFIED, UNCOMPLICATED (2) Acute exacerbation of chronic obstructive pulmonary disease (COPD) Code(s): J44.1 - CHRONIC OBSTRUCTIVE PULMONARY DISEASE W (ACUTE) EXACERBATION (3) COPD exacerbation Code(s): J44.1 - CHRONIC OBSTRUCTIVE PULMONARY DISEASE W (ACUTE) EXACERBATION (4) Anxiety Code(s): F41.9 - ANXIETY DISORDER, UNSPECIFIED (5) CAD (coronary artery disease) Code(s): I25.10 - ATHSCL HEART DISEASE OF [place] CORONARY ARTERY W/O ANG PCTRS (6) Stented coronary artery Code(s): Z95.5 - PRESENCE OF CORONARY ANGIOPLASTY IMPLANT AND GRAFT
[2018-06-22] MEDS: ASPIRIN COATED 81 MG TABLET.EC PO SCH (10:04)
[2018-06-22] MEDS: amLODIPine BESYLATE 5 MG TABLET (FP) PO SCH (10:04)
[2018-06-22] MEDS: LISINOPRIL 20 MG TABLET (FP) PO SCH (10:04)
[2018-06-22] MEDS: SOLIFENACIN SUCCINATE 5 MG TAB (FP) PO SCH (10:04)
--- NOTE | 2018-06-22 16:14 | PN ---
Teaching Attending Note Name of Resident: Kaylene Michael ATTENDING PHYSICIAN STATEMENT I saw and evaluated the patient. I reviewed the resident's note and discussed the case with the resident. I agree with the resident's findings and plan as documented. SUBJECTIVE:feels improved , saturating well on 2 Ltr NC OBJECTIVE: Vital Signs Period Temp Pulse Resp BP Sys/Nielsen Pulse Ox Last 24 Hr 98.1 F-98.9 F 104-130 18-22 111-161/67-82 94-98 - Elderly F not in distress HEENT: Mm moist, no anemia, PERRLA EOMI NECK: No JVd No Bruit CHEST: Minimal wheezes + CVS; S1S2 R ABD: No distention, non tender Bs + EXT: No edema feet, no calf tenderness, Pulses + STORE PRODUCT DEMONSTRATOR: AOX3 non focal LBS: sputum RSV + ASSESSMENT AND PLAN:72 y/o F with PMH past severe COPD exacerbations (intubated , in ICU 2014), on 1.5L home 02 at night, never on BiPAP, CAD s/p 2 stents (2014 ), HTN, brain aneurysm (20 yrs ago; clipped), who presents to the ED c/o SOB over the past three days. Impression COPD exacerbation: improving can be switched to Po prednisone, cont O2 inhalation and nebs if cleared by Pulmonary can be discharged home on home meds and Duo neb with 10 days prednisone taper. Problem List - Problems (1) COPD exacerbation Code(s): J44.1 - CHRONIC OBSTRUCTIVE PULMONARY DISEASE W (ACUTE) EXACERBATION (2) CAD (coronary artery disease) Code(s): I25.10 - ATHSCL HEART DISEASE OF [place] CORONARY ARTERY W/O ANG PCTRS (3) Anxiety Code(s): F41.9 - ANXIETY DISORDER, UNSPECIFIED
--- NOTE | 2018-06-22 16:38 | PN ---
Physical Exam: SUBJECTIVE: Patient seen and examined at bedside. No acute events overnight. On BiPAP at night. OBJECTIVE: Vital Signs Temperature 98.4 F 06/22/18 14:56 Pulse Rate 108 H 06/22/18 14:56 Respiratory Rate 18 06/22/18 14:56 Blood Pressure 122/70 06/22/18 14:56 O2 Sat by Pulse Oximetry (%) 96 06/22/18 06:00 GENERAL: AAOx3. NAD. Resting comfortably. HEENT: AT/NC. EOMI. ASH. Dry mucus membranes. NECK: Trachea midline, full range of motion, supple. LUNGS: b/l expiratory wheezes. On NC. No accessory muscle use noted. HEART: RRR. Normal S1, S2. No murmurs noted. ABDOMEN: Soft NT/ND. +BS in all 4Qs. EXTREMITIES: 2+ pulses, warm, well-perfused, no edema. NEUROLOGICAL: Responds to commands. Normal speech. CBC, BMP 06/22/18 07:00 06/22/18 07:00 Active Medications Albuterol Sulfate (Ventolin 0.083% Nebulizer Soln -) 1 amp NEB Q6H PRN PRN Reason: SHORTNESS OF BREATH Albuterol/Ipratropium (Duoneb -) 1 amp NEB RQID [facility] Last Admin: 06/22/18 11:43 Dose: 1 amp Amlodipine Besylate (Norvasc -) 5 mg PO DAILY [facility] Last Admin: 06/22/18 10:04 Dose: 5 mg Aspirin (Ecotrin -) 81 mg PO DAILY [facility] Last Admin: 06/22/18 10:04 Dose: 81 mg Lisinopril (Prinivil) 20 mg PO DAILY [facility] Last Admin: 06/22/18 10:04 Dose: 20 mg Methylprednisolone Sodium Succinate (Solu-Medrol -) 60 mg IVPUSH Q8H-IV [facility] Last Admin: 06/22/18 10:04 Dose: 60 mg Solifenacin (Vesicare -) 5 mg PO DAILY [facility] Last Admin: 06/22/18 10:04 Dose: 5 mg CONSULT: Pulm- Dr. Reyes IMAGING: * CXR: hyperinflated lung lopez, with R sided atelectasis, no infiltrates. my read - official pending * EKG: +sinus tach, RA enlargement, no st-t wave changes. rate 116bpm, Qtc 453ms * past chest CT (2014): moderate emphysema/COPD. minimal atelectatic changes and interstitial thickening in the RLL, laterally without evidence of focal infiltrates, pulm nodules, pneumothorax or pleural effusion. s/p tamara. ASSESSMENT/PLAN: 72F with PMH past severe COPD exacerbations (intubated, in ICU 2014), on 1.5L home 02 at night, never on BiPAP, CAD s/p 2 stents (2014), HTN, brain aneurysm ( 20 yrs ago; clipped), who presents to the ED c/o SOB over the past three days. #COPD exacerbation likely 2/2 URI -Pt currently using BiPAP at night, will try to wean off PM BiPAP. Cont to monitor, can potentially d/c tomorrow if stable with steroid taper. -can switch to Prednisone 40 mg PO QD -Duonebs QID, Ventolin Q6H, -can start breo on d/c, as do not need extra ICS at this time as on medrol #CAD s/p 2 stents (2014) Cont home med: Aspirin 81 mg PO QD #HTN; stable at 122/70. Cont home meds: Lisinopril 20 PO QD, Amlodipine 5 mg PO QD #F/E/N -no indication for fluids at this time -continue to follow lytes -diabetic/sodium-controlled diet #PPX DVT: SCDs #Dispo -med-surg obs Visit type - Emergency Visit Emergency Visit: Yes ED Registration Date: 06/20/18 Care time: The patient presented to the Emergency Department on the above date and was hospitalized for further evaluation of their emergent condition. - New Patient This patient is new to me today: Yes Date on this admission: 06/22/18 - Critical Care Critical Care patient: No
[2018-06-22] MEDS: predniSONE 20 MG TABLET (UD) PO SCH (17:51)
[2018-06-23 07:27] LABS: HEMATOCRIT 29.3 % (32.4-45.2); HEMOGLOBIN 9.7 GM/dL (10.7-15.3); MCH 27.5 pg (25.7-33.7); MEAN CELL VOLUME 83.2 fl (80-96); MEAN PLT VOLUME 6.8 fl (7.5-11.1); PLATELET COUNT 319 K/MM3 (134-434); RBC 3.52 M/mm3 (3.60-5.2); RDW 16.8 % (11.6-15.6); WHITE BLOOD COUNT 10.1 K/mm3 (4.0-10.0)
[2018-06-23] MEDS: ALBUTEROL SO4 2.5/IPRATROPIUM 0.5 INH SOL 3 ML VIAL.NEB. NEB SCH ×4 (07:50→20:23)
[2018-06-23 08:23] LABS: ANION GAP 5 MMOL/L (8-16); BLOOD UREA NITROGEN 23 mg/dL (7-18); CALCIUM 8.5 mg/dL (8.5-10.1); CHLORIDE 105 mmol/L (98-107); CO2 30 mmol/L (21-32); CREATININE 0.7 mg/dL (0.55-1.3); GLUCOSE,RANDOM 90 mg/dL (74-106); POTASSIUM 4.3 mmol/L (3.5-5.1); SODIUM 141 mmol/L (136-145)
[2018-06-23] MEDS: ASPIRIN COATED 81 MG TABLET.EC PO SCH (10:23)
[2018-06-23] MEDS: predniSONE 20 MG TABLET (UD) PO SCH (10:23)
[2018-06-23] MEDS: SOLIFENACIN SUCCINATE 5 MG TAB (FP) PO SCH (10:23)
[2018-06-23] MEDS: amLODIPine BESYLATE 5 MG TABLET (FP) PO SCH (10:23)
[2018-06-23] MEDS: LISINOPRIL 20 MG TABLET (FP) PO SCH (10:23)
--- NOTE | 2018-06-23 13:22 | EKG ---
Test Reason : Blood Pressure : / mmHG Vent. Rate : 116 BPM Atrial Rate : 116 BPM P-R Int : 150 ms QRS Dur : 074 ms QT Int : 326 ms P-R-T Axes : 077 069 063 degrees QTc Int : 453 ms POOR DATA QUALITY, INTERPRETATION MAY BE ADVERSELY AFFECTED SINUS TACHYCARDIA BIATRIAL ENLARGEMENT ABNORMAL ECG WHEN COMPARED WITH ECG OF 22-JUL-2015 15:33, ST ELEVATION HAS REPLACED ST DEPRESSION IN INFERIOR LEADS NONSPECIFIC T WAVE ABNORMALITY NO LONGER EVIDENT IN INFERIOR LEADS Confirmed by LEVI LEVI, INDIO ([id number]) on 06/23/2018 1:21:53 PM Referred By: Confirmed By:INDIO SIMS MD
--- NOTE | 2018-06-23 14:16 | PN ---
Progress Note, Physician History of Present Illness: PULMONARY ALERT,FEELING BETTER,LESS DYSPNEIC - Current Medication List Current Medications: Active Medications Albuterol Sulfate (Ventolin 0.083% Nebulizer Soln -) 1 amp NEB Q6H PRN PRN Reason: SHORTNESS OF BREATH Albuterol/Ipratropium (Duoneb -) 1 amp NEB RQID [facility] Last Admin: 06/23/18 11:40 Dose: 1 amp Amlodipine Besylate (Norvasc -) 5 mg PO DAILY [facility] Last Admin: 06/23/18 10:23 Dose: 5 mg Aspirin (Ecotrin -) 81 mg PO DAILY [facility] Last Admin: 06/23/18 10:23 Dose: 81 mg Lisinopril (Prinivil) 20 mg PO DAILY [facility] Last Admin: 06/23/18 10:23 Dose: 20 mg Prednisone (Deltasone -) 40 mg PO DAILY [facility] Last Admin: 06/23/18 10:23 Dose: 40 mg Solifenacin (Vesicare -) 5 mg PO DAILY [facility] Last Admin: 06/23/18 10:23 Dose: 5 mg - Objective Vital Signs: Vital Signs Temperature 99.4 F 06/23/18 06:00 Pulse Rate 102 H 06/23/18 06:00 Respiratory Rate 20 06/23/18 06:00 Blood Pressure 145/84 06/23/18 06:00 O2 Sat by Pulse Oximetry (%) 96 06/22/18 06:00 Constitutional: Yes: Calm, Thin Eyes: Yes: WNL HENT: Yes: WNL Neck: Yes: WNL Cardiovascular: Yes: Regular Rate and Rhythm, S1, S2 Respiratory: Yes: Wheezes (FEW SCATTERED WHEEZES) Gastrointestinal: Yes: Normal Bowel Sounds, Soft Extremities: Yes: WNL Edema: No Labs: CBC, BMP 06/23/18 06:30 06/23/18 06:30 Assessment/Plan Problem List - Problems (1) Smoker Code(s): F17.200 - NICOTINE DEPENDENCE, UNSPECIFIED, UNCOMPLICATED (2) Acute exacerbation of chronic obstructive pulmonary disease (COPD) Code(s): J44.1 - CHRONIC OBSTRUCTIVE PULMONARY DISEASE W (ACUTE) EXACERBATION (3) COPD exacerbation Code(s): J44.1 - CHRONIC OBSTRUCTIVE PULMONARY DISEASE W (ACUTE) EXACERBATION (4) Anxiety Code(s): F41.9 - ANXIETY DISORDER, UNSPECIFIED (5) CAD (coronary artery disease) Code(s): I25.10 - ATHSCL HEART DISEASE OF [place] CORONARY ARTERY W/O ANG PCTRS (6) Stented coronary artery Code(s): Z95.5 - PRESENCE OF CORONARY ANGIOPLASTY IMPLANT AND GRAFT Assessment/Plan steroids Duoneb O2 as needed to maintain saturation: 88% to 92% Would monitor off ABX No smoking discussed DR MALDONADO
--- NOTE | 2018-06-23 14:46 | PN ---
Teaching Attending Note Name of Resident: Lauren Rouse ATTENDING PHYSICIAN STATEMENT I saw and evaluated the patient. I reviewed the resident's note and discussed the case with the resident. I agree with the resident's findings and plan as documented. SUBJECTIVE: No fever or chills. SOB is better . cont to have some cough . anxiety on and off. OBJECTIVE: NAD CV: RRR Lungs: scattered wheezing. good air entry Ext : no edema or erythema ASSESSMENT AND PLAN: 72 y/o lady with h/o COPD , on home O2, CAD s/p stenting, HTN, brain aneurysm who presented with SOB and cough, she was found to have acute COPD exacerbation due to RSV. 1- Acute COPD exacerbation : improved . - cont steroids. - Nebs and inhalers - no evidence of PNA . elevated WBC is likely due to steroids 2- HTN: cont norvasc and lisinopril 3- Dispo : d/w pulm, need IV steroids
--- NOTE | 2018-06-23 14:49 | PN ---
Physical Exam: SUBJECTIVE: Patient seen and examined at bedside. No acute events overnight. Denies chest pain, f/c, n/v, abd pain. No complaints. Still with congestion. OBJECTIVE: Vital Signs Temperature 99.4 F 06/23/18 06:00 Pulse Rate 102 H 06/23/18 06:00 Respiratory Rate 20 06/23/18 06:00 Blood Pressure 145/84 06/23/18 06:00 O2 Sat by Pulse Oximetry (%) 96 06/22/18 06:00 GENERAL: AAOx3. NAD. Resting comfortably. HEENT: AT/NC. EOMI. ASH. Dry mucus membranes. NECK: Trachea midline, full range of motion, supple. LUNGS: b/l expiratory wheezes. On NC. No accessory muscle use noted. HEART: RRR. Normal S1, S2. No murmurs noted. ABDOMEN: Soft NT/ND. +BS in all 4Qs. EXTREMITIES: 2+ pulses, warm, well-perfused, no edema. NEUROLOGICAL: Responds to commands. Normal speech. CBC, BMP 06/23/18 06:30 06/23/18 06:30 Active Medications Albuterol Sulfate (Ventolin 0.083% Nebulizer Soln -) 1 amp NEB Q6H PRN PRN Reason: SHORTNESS OF BREATH Albuterol/Ipratropium (Duoneb -) 1 amp NEB RQID [facility] Last Admin: 06/23/18 11:40 Dose: 1 amp Amlodipine Besylate (Norvasc -) 5 mg PO DAILY [facility] Last Admin: 06/23/18 10:23 Dose: 5 mg Aspirin (Ecotrin -) 81 mg PO DAILY [facility] Last Admin: 06/23/18 10:23 Dose: 81 mg Lisinopril (Prinivil) 20 mg PO DAILY [facility] Last Admin: 06/23/18 10:23 Dose: 20 mg Methylprednisolone Sodium Succinate (Solu-Medrol -) 40 mg IVPUSH Q8H-IV [facility] Solifenacin (Vesicare -) 5 mg PO DAILY [facility] Last Admin: 06/23/18 10:23 Dose: 5 mg CONSULT: Pulm- Dr. Reyes IMAGING: * CXR: hyperinflated lung lopez, with R sided atelectasis, no infiltrates. my read - official pending * EKG: +sinus tach, RA enlargement, no st-t wave changes. rate 116bpm, Qtc 453ms * past chest CT (2014): moderate emphysema/COPD. minimal atelectatic changes and interstitial thickening in the RLL, laterally without evidence of focal infiltrates, pulm nodules, pneumothorax or pleural effusion. s/p tamara. ASSESSMENT/PLAN: 72F with PMH past severe COPD exacerbations (intubated, in ICU 2014), on 1.5L home 02 at night, never on BiPAP, CAD s/p 2 stents (2014), HTN, brain aneurysm ( 20 yrs ago; clipped), who presents to the ED c/o SOB over the past three days. #COPD exacerbation likely 2/2 URI -Pt bairon well off BiPAP last night. Cont to monitor, can potentially d/c tomorrow if stable. -Per ID, started on IV Solumedrol 40 mg IVP Q8H; will cont to monitor tomorrow -Duonebs QID, Ventolin Q6H -can start breo on d/c, as do not need extra ICS at this time as on medrol #CAD s/p 2 stents (2014) Cont home med: Aspirin 81 mg PO QD #HTN; stable at 122/70. Cont home meds: Lisinopril 20 PO QD, Amlodipine 5 mg PO QD #F/E/N -no indication for fluids at this time -continue to follow lytes -diabetic/sodium-controlled diet #PPX DVT: SCDs #Dispo -inpatient med-surg Visit type - Emergency Visit Emergency Visit: Yes ED Registration Date: 06/20/18 Care time: The patient presented to the Emergency Department on the above date and was hospitalized for further evaluation of their emergent condition. - New Patient This patient is new to me today: No - Critical Care Critical Care patient: No
[2018-06-23] MEDS: methylPREDNISolone NA SUCC 40 MG/1 ML VIAL IVPUSH SCH ×2 (15:59→17:54)
[2018-06-24] MEDS: methylPREDNISolone NA SUCC 40 MG/1 ML VIAL IVPUSH SCH ×3 (02:31→18:22)
[2018-06-24 07:37] LABS: HEMATOCRIT 30.5 % (32.4-45.2); HEMOGLOBIN 10.1 GM/dL (10.7-15.3); MCH 27.5 pg (25.7-33.7); MEAN CELL VOLUME 83.3 fl (80-96); MEAN PLT VOLUME 6.8 fl (7.5-11.1); PLATELET COUNT 328 K/MM3 (134-434); RBC 3.67 M/mm3 (3.60-5.2); RDW 16.8 % (11.6-15.6); WHITE BLOOD COUNT 10.4 K/mm3 (4.0-10.0)
[2018-06-24] MEDS: ALBUTEROL SO4 2.5/IPRATROPIUM 0.5 INH SOL 3 ML VIAL.NEB. NEB SCH ×3 (07:40→15:30)
[2018-06-24 08:05] LABS: ANION GAP 5 MMOL/L (8-16); BLOOD UREA NITROGEN 20 mg/dL (7-18); CALCIUM 8.5 mg/dL (8.5-10.1); CHLORIDE 103 mmol/L (98-107); CO2 32 mmol/L (21-32); CREATININE 0.7 mg/dL (0.55-1.3); GLUCOSE,RANDOM 109 mg/dL (74-106); POTASSIUM 4.1 mmol/L (3.5-5.1); SODIUM 141 mmol/L (136-145)
--- NOTE | 2018-06-24 08:28 | PN ---
Progress Note (short form) - Note Progress Note: Feels a little better today but not at baseline. Still with SANDOVAL. Used NIPPV with good effect overnight. No CP. Intake & Output 06/21/18 06/22/18 06/23/18 06/24/18 23:59 23:59 23:59 23:59 Intake Total 1080 1380 1360 0 Balance 1080 1380 1360 0 Weight 97 lb Last Vital Signs Temp Pulse Resp BP Pulse Ox 98.7 F 92 H 20 144/87 93 L 06/24/18 07:02 06/24/18 07:02 06/24/18 07:02 06/24/18 07:02 06/23/18 21:00 Active Medications Albuterol Sulfate (Ventolin 0.083% Nebulizer Soln -) 1 amp NEB Q6H PRN PRN Reason: SHORTNESS OF BREATH Albuterol/Ipratropium (Duoneb -) 1 amp NEB RQID [facility] Last Admin: 06/24/18 07:40 Dose: 1 amp Amlodipine Besylate (Norvasc -) 5 mg PO DAILY [facility] Last Admin: 06/23/18 10:23 Dose: 5 mg Aspirin (Ecotrin -) 81 mg PO DAILY [facility] Last Admin: 06/23/18 10:23 Dose: 81 mg Lisinopril (Prinivil) 20 mg PO DAILY [facility] Last Admin: 06/23/18 10:23 Dose: 20 mg Methylprednisolone Sodium Succinate (Solu-Medrol -) 40 mg IVPUSH Q8H-IV [facility] Last Admin: 06/24/18 02:31 Dose: 40 mg Solifenacin (Vesicare -) 5 mg PO DAILY [facility] Last Admin: 06/23/18 10:23 Dose: 5 mg Constitutional: Yes: More comfortable today, mildly tachypneic at rest Eyes: Yes: Conjunctiva Clear, EOM Intact HENT: Yes: Atraumatic, Normocephalic Neck: Yes: Supple, Trachea Midline Cardiovascular: Yes: Tachycardia Respiratory: Yes: Cough, Diminished, On Nasal O2, Rhonchi, Tachypnea, Wheezes. No: Rales, Stridor ...Inspection: Yes: WNL ...Clubbing: No Gastrointestinal: Yes: Normal Bowel Sounds, Soft Renal/: Yes: WNL Musculoskeletal: Yes: WNL Extremities: Yes: WNL Edema: No Peripheral Pulses WNL: Yes Integumentary: Yes: WNL Neurological: Yes: WNL, Alert, Oriented ...Motor Strength: WNL Psychiatric: Yes: WNL, Alert, Oriented Labs: Laboratory Results - last 24 hr 06/24/18 07:00 Sodium 141 Potassium 4.1 Chloride 103 Carbon Dioxide 32 Anion Gap 5 L BUN 20 H Creatinine 0.7 Creat Clearance w eGFR > 60 Random Glucose 109 H Calcium 8.5 Problem List - Problems (1) Smoker Code(s): F17.200 - NICOTINE DEPENDENCE, UNSPECIFIED, UNCOMPLICATED (2) Acute exacerbation of chronic obstructive pulmonary disease (COPD) Code(s): J44.1 - CHRONIC OBSTRUCTIVE PULMONARY DISEASE W (ACUTE) EXACERBATION (3) COPD exacerbation Code(s): J44.1 - CHRONIC OBSTRUCTIVE PULMONARY DISEASE W (ACUTE) EXACERBATION (4) Anxiety Code(s): F41.9 - ANXIETY DISORDER, UNSPECIFIED (5) CAD (coronary artery disease) Code(s): I25.10 - ATHSCL HEART DISEASE OF [place] CORONARY ARTERY W/O ANG PCTRS (6) Stented coronary artery Code(s): Z95.5 - PRESENCE OF CORONARY ANGIOPLASTY IMPLANT AND GRAFT Assessment/Plan (+) RSV IV Medrol same dose Duoneb O2 as needed to maintain saturation: 88% to 92% Would continue to monitor off ABX No smoking NIPPV QHS and PRN Dr Reyes Problem List - Problems (1) Smoker Code(s): F17.200 - NICOTINE DEPENDENCE, UNSPECIFIED, UNCOMPLICATED (2) Acute exacerbation of chronic obstructive pulmonary disease (COPD) Code(s): J44.1 - CHRONIC OBSTRUCTIVE PULMONARY DISEASE W (ACUTE) EXACERBATION (3) COPD exacerbation Code(s): J44.1 - CHRONIC OBSTRUCTIVE PULMONARY DISEASE W (ACUTE) EXACERBATION (4) Anxiety Code(s): F41.9 - ANXIETY DISORDER, UNSPECIFIED (5) CAD (coronary artery disease) Code(s): I25.10 - ATHSCL HEART DISEASE OF [place] CORONARY ARTERY W/O ANG PCTRS (6) Stented coronary artery Code(s): Z95.5 - PRESENCE OF CORONARY ANGIOPLASTY IMPLANT AND GRAFT
[2018-06-24] MEDS: LISINOPRIL 20 MG TABLET (FP) PO SCH (09:59)
[2018-06-24] MEDS: SOLIFENACIN SUCCINATE 5 MG TAB (FP) PO SCH (09:59)
[2018-06-24] MEDS: ASPIRIN COATED 81 MG TABLET.EC PO SCH (09:59)
[2018-06-24] MEDS: amLODIPine BESYLATE 5 MG TABLET (FP) PO SCH (09:59)
--- NOTE | 2018-06-24 11:32 | PN ---
Physical Exam: SUBJECTIVE: Patient seen and examined at bedside. Per nurse, no acute events overnight. Pt feeling more short of breath than her baseline, however, when off oxygen. OBJECTIVE: Vital Signs Temperature 98.7 F 06/24/18 07:02 Pulse Rate 92 H 06/24/18 07:02 Respiratory Rate 20 06/24/18 07:02 Blood Pressure 144/87 06/24/18 07:02 O2 Sat by Pulse Oximetry (%) 93 L 06/23/18 21:00 GENERAL: AAOx3. NAD. Resting comfortably. HEENT: AT/NC. EOMI. ASH. Dry mucus membranes. NECK: Trachea midline, full range of motion, supple. LUNGS: b/l expiratory wheezes. On NC. No accessory muscle use noted. HEART: RRR. Normal S1, S2. No murmurs noted. ABDOMEN: Soft NT/ND. +BS in all 4Qs. EXTREMITIES: 2+ pulses, warm, well-perfused, no edema. NEUROLOGICAL: Responds to commands. Normal speech. CBC, BMP 06/24/18 07:00 06/24/18 07:00 Active Medications Albuterol Sulfate (Ventolin 0.083% Nebulizer Soln -) 1 amp NEB Q6H PRN PRN Reason: SHORTNESS OF BREATH Albuterol/Ipratropium (Duoneb -) 1 amp NEB RQID [facility] Last Admin: 06/24/18 11:10 Dose: 1 amp Amlodipine Besylate (Norvasc -) 5 mg PO DAILY [facility] Last Admin: 06/24/18 09:59 Dose: 5 mg Aspirin (Ecotrin -) 81 mg PO DAILY [facility] Last Admin: 06/24/18 09:59 Dose: 81 mg Enoxaparin Sodium (Lovenox -) 40 mg SQ DAILY [facility] Lisinopril (Prinivil) 20 mg PO DAILY [facility] Last Admin: 06/24/18 09:59 Dose: 20 mg Methylprednisolone Sodium Succinate (Solu-Medrol -) 40 mg IVPUSH Q8H-IV [facility] Last Admin: 06/24/18 09:59 Dose: 40 mg Solifenacin (Vesicare -) 5 mg PO DAILY [facility] Last Admin: 06/24/18 09:59 Dose: 5 mg CONSULT: Pulm- Dr. Reyes IMAGING: * CXR: hyperinflated lung lopez, with R sided atelectasis, no infiltrates. my read - official pending * EKG: +sinus tach, RA enlargement, no st-t wave changes. rate 116bpm, Qtc 453ms * past chest CT (2014): moderate emphysema/COPD. minimal atelectatic changes and interstitial thickening in the RLL, laterally without evidence of focal infiltrates, pulm nodules, pneumothorax or pleural effusion. s/p tamara. ASSESSMENT/PLAN: 72F with PMH past severe COPD exacerbations (intubated, in ICU 2014), on 1.5L home 02 at night, never on BiPAP, CAD s/p 2 stents (2014), HTN, brain aneurysm ( 20 yrs ago; clipped), who presents to the ED c/o SOB over the past three days. #COPD exacerbation likely 2/2 URI -Per ID, cont IV Solumedrol 40 mg IVP Q8H today, and switch to PO Prednisone tomorrow -Duonebs QID, Ventolin Q6H -can start breo on d/c, as do not need extra ICS at this time as on medrol #CAD s/p 2 stents (2014) Cont home med: Aspirin 81 mg PO QD #HTN; stable at 122/70. Cont home meds: Lisinopril 20 PO QD, Amlodipine 5 mg PO QD #Hx of Tobacco Use -Smoking cessation counseling #F/E/N -no indication for fluids at this time -continue to follow lytes -diabetic/sodium-controlled diet #PPX DVT: SCDs #Dispo -inpatient med-surg Visit type - Emergency Visit Emergency Visit: Yes ED Registration Date: 06/23/18 Care time: The patient presented to the Emergency Department on the above date and was hospitalized for further evaluation of their emergent condition. - New Patient This patient is new to me today: No - Critical Care Critical Care patient: No
[2018-06-24] MEDS: ENOXAPARIN NA (PORCINE) 40 MG/0.4 ML DISP.SYRIN SQ SCH (12:47)
--- NOTE | 2018-06-24 14:45 | PN ---
Teaching Attending Note Name of Resident: Kaylene Michael ATTENDING PHYSICIAN STATEMENT I saw and evaluated the patient. I reviewed the resident's note and discussed the case with the resident. I agree with the resident's findings and plan as documented. SUBJECTIVE: No fever or chills . SOB is much better , but still SOB with ambulation . cont to need Oxygen at rest OBJECTIVE: NAD , comfortable. CV: RRR Lungs: scattered wheezing. good air entry Ext : no edema or erythema ASSESSMENT AND PLAN: 72 y/o lady with h/o COPD , on home O2, CAD s/p stenting, HTN, brain aneurysm who presented with SOB and cough, she was found to have acute COPD exacerbation due to RSV. 1- Acute COPD exacerbation : improved . - cont steroids at current dose . likely can switch to po tomorrow - Nebs and inhalers - Cont O2 supplementation 2- HTN: cont norvasc and lisinopril 3- Dispo : d/w pulm by team add lovenox for DVT px
[2018-06-25] MEDS: methylPREDNISolone NA SUCC 40 MG/1 ML VIAL IVPUSH SCH ×3 (01:15→17:07)
[2018-06-25] MEDS: ALBUTEROL SO4 2.5/IPRATROPIUM 0.5 INH SOL 3 ML VIAL.NEB. NEB SCH ×4 (07:35→15:33)
[2018-06-25] MEDS: LISINOPRIL 20 MG TABLET (FP) PO SCH (09:55)
[2018-06-25] MEDS: SOLIFENACIN SUCCINATE 5 MG TAB (FP) PO SCH (09:55)
[2018-06-25] MEDS: ENOXAPARIN NA (PORCINE) 40 MG/0.4 ML DISP.SYRIN SQ SCH (09:55)
[2018-06-25] MEDS: amLODIPine BESYLATE 5 MG TABLET (FP) PO SCH (09:55)
[2018-06-25] MEDS: ASPIRIN COATED 81 MG TABLET.EC PO SCH (09:55)
--- NOTE | 2018-06-25 16:16 | PN ---
Progress Note (short form) - Note Progress Note: PULMONARY DYSPNEIC AFTER GOING TO BATHROOM VSS Constitutional: Yes: tachypneic at rest Eyes: Yes: Conjunctiva Clear, EOM Intact HENT: Yes: Atraumatic, Normocephalic Neck: Yes: Supple, Trachea Midline Cardiovascular: Yes: Tachycardia Respiratory: Yes: Cough, Diminished, On Nasal O2, Rhonchi, Tachypnea, Wheezes. No: Rales, Stridor ...Inspection: Yes: WNL ...Clubbing: No Gastrointestinal: Yes: Normal Bowel Sounds, Soft Renal/: Yes: WNL Musculoskeletal: Yes: WNL Extremities: Yes: WNL Edema: No Peripheral Pulses WNL: Yes Integumentary: Yes: WNL Neurological: Yes: WNL, Alert, Oriented ...Motor Strength: WNL Psychiatric: Yes: WNL, Alert, Oriented Labs: REVIEWED MEDS/LABS/IMAGES/MICRO/NOTES REVIEWED - Problems (1) Smoker Code(s): F17.200 - NICOTINE DEPENDENCE, UNSPECIFIED, UNCOMPLICATED (2) Acute exacerbation of chronic obstructive pulmonary disease (COPD) Code(s): J44.1 - CHRONIC OBSTRUCTIVE PULMONARY DISEASE W (ACUTE) EXACERBATION (3) COPD exacerbation Code(s): J44.1 - CHRONIC OBSTRUCTIVE PULMONARY DISEASE W (ACUTE) EXACERBATION (4) Anxiety Code(s): F41.9 - ANXIETY DISORDER, UNSPECIFIED (5) CAD (coronary artery disease) Code(s): I25.10 - ATHSCL HEART DISEASE OF [place] CORONARY ARTERY W/O ANG PCTRS (6) Stented coronary artery Code(s): Z95.5 - PRESENCE OF CORONARY ANGIOPLASTY IMPLANT AND GRAFT Assessment/Plan (+) RSV IV Medrol same dose Duoneb O2 as needed to maintain saturation: 88% to 92% Would continue to monitor off ABX No smoking NIPPV QHS and PRN Consider alprazolam low dose for extreme anxiety Dr Reyes
--- NOTE | 2018-06-25 16:53 | PN ---
Physical Exam: SUBJECTIVE: Patient seen and examined at bedside. No acute events overnight. Pt states that she needs oxygen even during the day. Denies chest pain, abd pain, urinary/bowel symptoms. OBJECTIVE: Vital Signs Temperature 98.2 F 06/25/18 10:00 Pulse Rate 94 H 06/25/18 10:00 Respiratory Rate 20 06/25/18 10:00 Blood Pressure 122/70 06/25/18 10:00 O2 Sat by Pulse Oximetry (%) 96 06/25/18 09:22 GENERAL: AAOx3. NAD. Resting comfortably. HEENT: AT/NC. EOMI. ASH. Dry mucus membranes. NECK: Trachea midline, full range of motion, supple. LUNGS: b/l expiratory wheezes. On NC. No accessory muscle use noted. HEART: RRR. Normal S1, S2. No murmurs noted. ABDOMEN: Soft NT/ND. +BS in all 4Qs. EXTREMITIES: 2+ pulses, warm, well-perfused, no edema. NEUROLOGICAL: Responds to commands. Normal speech. Active Medications Albuterol Sulfate (Ventolin 0.083% Nebulizer Soln -) 1 amp NEB Q6H PRN PRN Reason: SHORTNESS OF BREATH Albuterol/Ipratropium (Duoneb -) 1 amp NEB RQID [facility] Last Admin: 06/25/18 15:33 Dose: 1 amp Amlodipine Besylate (Norvasc -) 5 mg PO DAILY [facility] Last Admin: 06/25/18 09:55 Dose: 5 mg Aspirin (Ecotrin -) 81 mg PO DAILY [facility] Last Admin: 06/25/18 09:55 Dose: 81 mg Enoxaparin Sodium (Lovenox -) 40 mg SQ DAILY [facility] Last Admin: 06/25/18 09:55 Dose: 40 mg Lisinopril (Prinivil) 20 mg PO DAILY [facility] Last Admin: 06/25/18 09:55 Dose: 20 mg Methylprednisolone Sodium Succinate (Solu-Medrol -) 40 mg IVPUSH Q8H-IV [facility] Last Admin: 06/25/18 09:55 Dose: 40 mg Solifenacin (Vesicare -) 5 mg PO DAILY [facility] Last Admin: 06/25/18 09:55 Dose: 5 mg CONSULT: Pulm- Dr. Reyes IMAGING: * CXR: hyperinflated lung lopez, with R sided atelectasis, no infiltrates. my read - official pending * EKG: +sinus tach, RA enlargement, no st-t wave changes. rate 116bpm, Qtc 453ms * past chest CT (2014): moderate emphysema/COPD. minimal atelectatic changes and interstitial thickening in the RLL, laterally without evidence of focal infiltrates, pulm nodules, pneumothorax or pleural effusion. s/p tamara. ASSESSMENT/PLAN: 72F with PMH past severe COPD exacerbations (intubated, in ICU 2014), on 1.5L home 02 at night, never on BiPAP, CAD s/p 2 stents (2014), HTN, brain aneurysm ( 20 yrs ago; clipped), who presents to the ED c/o SOB over the past three days admitted for acute COPD exacerbation 2/2 RSV #COPD exacerbation; 2/2 RSV. Improved. -Per ID, cont IV Solumedrol 40 mg IVP Q8H today; await pulm recs tomorrow -Duonebs QID, Ventolin Q6H -can start breo on d/c, as do not need extra ICS at this time as on medrol #CAD s/p 2 stents (2014) Cont home med: Aspirin 81 mg PO QD #HTN; stable at 122/70. Cont home meds: Lisinopril 20 PO QD, Amlodipine 5 mg PO QD #Hx of Tobacco Use -Smoking cessation counseling #F/E/N -no indication for fluids at this time -continue to follow lytes -diabetic/sodium-controlled diet #PPX DVT: Lovenox #Dispo -inpatient med-surg Visit type - Emergency Visit Emergency Visit: Yes ED Registration Date: 06/23/18 Care time: The patient presented to the Emergency Department on the above date and was hospitalized for further evaluation of their emergent condition. - New Patient This patient is new to me today: No - Critical Care Critical Care patient: No
[2018-06-25] MEDS ORDERED: CODEINE SO4 30 MG TABLET PO ONE (18:54)
--- NOTE | 2018-06-25 18:57 | PN ---
Teaching Attending Note Name of Resident: Say Kumar ATTENDING PHYSICIAN STATEMENT I saw and evaluated the patient. I reviewed the resident's note and discussed the case with the resident. I agree with the resident's findings and plan as documented. SUBJECTIVE: feels slightly better OBJECTIVE: NAD , comfortable. CV: RRR Lungs: scattered wheezing. air entry is worse compared to yesterday Ext : no edema or erythema ASSESSMENT AND PLAN: 72 y/o lady with h/o COPD , on home O2, CAD s/p stenting, HTN, brain aneurysm who presented with SOB and cough, she was found to have acute COPD exacerbation due to RSV. 1- Acute COPD exacerbation: improved . - cont steroids at current dose. - Nebs and inhalers - Cont O2 supplementation 2- HTN: cont norvasc and lisinopril 3- Dispo: d/w pulm by team fawn for DVT px
[2018-06-25] MEDS ORDERED: guaiFENesin/D-METHORPHAN HB 10 ML UNIT-DOSE CUPS PO ONE (19:38)
[2018-06-25] MEDS ORDERED: guaiFENesin/D-METHORPHAN HB 10 ML UNIT-DOSE CUPS PO PRN (19:39)
[2018-06-25] MEDS ORDERED: ALPRAZolam 0.25 MG TABLET PO ONE (20:29)
[2018-06-25] MEDS ORDERED: ALBUTEROL SO4 2.5/IPRATROPIUM 0.5 INH SOL 3 ML VIAL.NEB. NEB PRN (21:26)
[2018-06-25] MEDS ORDERED: ALBUTEROL SO4 0.083% IH SOL 2.5 MG/3 ML VIAL.NEB. NEB PRN (21:26)
[2018-06-26] MEDS: methylPREDNISolone NA SUCC 40 MG/1 ML VIAL IVPUSH SCH ×3 (01:00→17:17)
[2018-06-26] MEDS ORDERED: PT OWN MED DRAWER 7, Y5N ONE (09:57)
[2018-06-26] MEDS: SOLIFENACIN SUCCINATE 5 MG TAB (FP) PO SCH (10:14)
[2018-06-26] MEDS: LISINOPRIL 20 MG TABLET (FP) PO SCH (10:14)
[2018-06-26] MEDS: ASPIRIN COATED 81 MG TABLET.EC PO SCH (10:14)
[2018-06-26] MEDS: amLODIPine BESYLATE 5 MG TABLET (FP) PO SCH (10:14)
[2018-06-26] MEDS: ENOXAPARIN NA (PORCINE) 40 MG/0.4 ML DISP.SYRIN SQ SCH (10:16)
[2018-06-26 10:58] VITALS: BP 145/86; PULSE 101; TEMP 98.3
--- NOTE | 2018-06-26 13:23 | PN ---
Physical Exam: SUBJECTIVE: Patient seen and examined at bedside. Did not use bipap overnight. received xanax for anxiety last night. mildly anxious. Denies SOB OBJECTIVE: Vital Signs Period Temp Pulse Resp BP Sys/Nielsen Pulse Ox Last 24 Hr 98.3 F-98.5 F 97-123 18-22 124-146/80-92 95-96 GENERAL: A&Ox3, no acute distress EYES: PERRLA, EOMI ENT: Moist mucus membranes NECK: No JVD LUNGS: mild wheezes noted b/l, good air entry HEART: RRR, no murmurs ABDOMEN: Soft, nontender, BS present MUSCULOSKELETAL: No CVA Tenderness EXTREMITIES: 2+ pulses, no edema. NEUROLOGICAL: Cranial nerves II-XII intact. Active Medications Generic Name Dose Route Start Last Admin Trade Name Freq PRN Reason Stop Dose Admin Albuterol/Ipratropium 1 amp 06/25/18 21:26 Duoneb - NEB Q6H PRN SHORTNESS OF BREATH Amlodipine Besylate 5 mg 06/21/18 10:00 06/26/18 10:14 Norvasc - PO 5 mg DAILY [facility] Administration Aspirin 81 mg 06/21/18 10:00 06/26/18 10:14 Ecotrin - PO 81 mg DAILY [facility] Administration Enoxaparin Sodium 40 mg 06/24/18 11:30 06/26/18 10:16 Lovenox - SQ 40 mg DAILY [facility] Administration Guaifenesin 10 ml 06/25/18 19:39 Robitussin Dm - PO Q8H PRN COUGH Lisinopril 20 mg 06/21/18 10:00 06/26/18 10:14 Prinivil PO 20 mg DAILY [facility] Administration Methylprednisolone Sodium Succinate 40 mg 06/23/18 14:30 06/26/18 10:14 Solu-Medrol - IVPUSH 40 mg Q8H-IV [facility] Administration Solifenacin 5 mg 06/21/18 10:00 06/26/18 10:14 Vesicare - PO 5 mg DAILY [facility] Administration ASSESSMENT/PLAN: 72F with PMH past severe COPD exacerbations (intubated, in ICU 2014), on 1.5L home 02 at night, never on BiPAP, CAD s/p 2 stents (2014), HTN, brain aneurysm ( 20 yrs ago; clipped), who presents to the ED c/o SOB over the past three days admitted for acute COPD exacerbation 2/2 RSV #COPD exacerbation; 2/2 RSV. Improved. -Per ID, cont IV Solumedrol 40 mg IVP Q8H today; await pulm recs -Duonebs QID, Ventolin Q6H -can start breo on d/c, as do not need extra ICS at this time as on medrol #CAD s/p 2 stents (2014) Cont home med: Aspirin 81 mg PO QD #HTN; stable at 122/70. Cont home meds: Lisinopril 20 PO QD, Amlodipine 5 mg PO QD #Hx of Tobacco Use -Smoking cessation counseling #F/E/N -no indication for fluids at this time -continue to follow lytes -diabetic/sodium-controlled diet #PPX DVT: Lovenox #Dispo -inpatient med-surg Visit type - Emergency Visit Emergency Visit: No - New Patient This patient is new to me today: No - Critical Care Critical Care patient: No
--- NOTE | 2018-06-26 13:45 | PN ---
Progress Note (short form) - Note Progress Note: PULMONARY WANTS TO GO HOME SUBJECTIVE IMPROVEMENT VSS Eyes: Yes: Conjunctiva Clear, EOM Intact HENT: Yes: Atraumatic, Normocephalic Neck: Yes: Supple, Trachea Midline Cardiovascular: Yes: Tachycardia Respiratory: Yes: Cough, Diminished, On Nasal O2, Rhonchi, Tachypnea, Wheezes. No: Rales, Stridor ...Inspection: Yes: WNL ...Clubbing: No Gastrointestinal: Yes: Normal Bowel Sounds, Soft Renal/: Yes: WNL Musculoskeletal: Yes: WNL Extremities: Yes: WNL Edema: No Peripheral Pulses WNL: Yes Integumentary: Yes: WNL Neurological: Yes: WNL, Alert, Oriented ...Motor Strength: WNL Psychiatric: Yes: WNL, Alert, Oriented Labs: REVIEWED MEDS/LABS/IMAGES/MICRO/NOTES REVIEWED - Problems (1) Smoker Code(s): F17.200 - NICOTINE DEPENDENCE, UNSPECIFIED, UNCOMPLICATED (2) Acute exacerbation of chronic obstructive pulmonary disease (COPD) Code(s): J44.1 - CHRONIC OBSTRUCTIVE PULMONARY DISEASE W (ACUTE) EXACERBATION (3) COPD exacerbation Code(s): J44.1 - CHRONIC OBSTRUCTIVE PULMONARY DISEASE W (ACUTE) EXACERBATION (4) Anxiety Code(s): F41.9 - ANXIETY DISORDER, UNSPECIFIED (5) CAD (coronary artery disease) Code(s): I25.10 - ATHSCL HEART DISEASE OF [place] CORONARY ARTERY W/O ANG PCTRS (6) Stented coronary artery Code(s): Z95.5 - PRESENCE OF CORONARY ANGIOPLASTY IMPLANT AND GRAFT Assessment/Plan (+) RSV IV Medrol to be changed to prednisone and taper as outpatient Duoneb O2 as needed to maintain saturation: 88% to 92% Would continue to monitor off ABX No smoking NIPPV QHS and PRN alprazolam low dose for extreme anxiety Dr Daivd Kaur
--- NOTE | 2018-06-26 14:05 | DS ---
Physical Exam: SUBJECTIVE: Patient seen and examined at bedside. Did not use bipap overnight. received xanax for anxiety last night. mildly anxious. Denies SOB OBJECTIVE: Vital Signs Period Temp Pulse Resp BP Sys/Nielsen Pulse Ox Last 24 Hr 98.3 F-98.5 F 97-123 18-22 124-146/80-92 95-96 GENERAL: A&Ox3, no acute distress EYES: PERRLA, EOMI ENT: Moist mucus membranes NECK: No JVD LUNGS: mild wheezes noted b/l, good air entry HEART: RRR, no murmurs ABDOMEN: Soft, nontender, BS present MUSCULOSKELETAL: No CVA Tenderness EXTREMITIES: 2+ pulses, no edema. NEUROLOGICAL: Cranial nerves II-XII intact. Active Medications Generic Name Dose Route Start Last Admin Trade Name Freq PRN Reason Stop Dose Admin Albuterol/Ipratropium 1 amp 06/25/18 21:26 Duoneb - NEB Q6H PRN SHORTNESS OF BREATH Amlodipine Besylate 5 mg 06/21/18 10:00 06/26/18 10:14 Norvasc - PO 5 mg DAILY [facility] Administration Aspirin 81 mg 06/21/18 10:00 06/26/18 10:14 Ecotrin - PO 81 mg DAILY [facility] Administration Enoxaparin Sodium 40 mg 06/24/18 11:30 06/26/18 10:16 Lovenox - SQ 40 mg DAILY [facility] Administration Guaifenesin 10 ml 06/25/18 19:39 Robitussin Dm - PO Q8H PRN COUGH Lisinopril 20 mg 06/21/18 10:00 06/26/18 10:14 Prinivil PO 20 mg DAILY [facility] Administration Methylprednisolone Sodium Succinate 40 mg 06/23/18 14:30 06/26/18 10:14 Solu-Medrol - IVPUSH 40 mg Q8H-IV [facility] Administration Solifenacin 5 mg 06/21/18 10:00 06/26/18 10:14 Vesicare - PO 5 mg DAILY [facility] Administration HOSPITAL COURSE: Date of Admission:06/23/18 72F with PMH past severe COPD exacerbations (intubated, in ICU 2014), on 1.5L home 02 at night, never on BiPAP, CAD s/p 2 stents (2014), HTN, brain aneurysm ( 20 yrs ago; clipped), who presented to the ED c/o SOB over the past three days. Admitted for acute COPD exacerbation. Patient was stabilized on 2L nasal cannula , solumedrol 40mg Q8h, and duonebs. She needed bipap to sleep the first night of admission. Patient's RSV returned positive. She stated she was in contact with her grandson who tested positive for RSV. Her respiratory status improved during hospital admission on 40mg solumedrol Q8h and she was discharged on a slow steroid taper (40mg decreased by 5 q3d). Date of Discharge: 06/26/18 Minutes to complete discharge: 36 Discharge Summary Reason For Visit: ACUTE EXACERBATION OF CHRONIC OBSTRUCTION Current Active Problems Smoker (Chronic) Condition: Improved - Instructions Diet, Activity, Other Instructions: You were seen in the hospital for complaints of shortness of breath and wheezing. In the hospital, you were found be in an acute COPD exacerbation due to a viral infection. As a result, you were given steroids and nebulizer treatments. Additionally, you were seen and evaluated by a spring tier for your COPD exacerbation. Your breathing symptoms improved throughout your hospital stay. You are being discharged home. MEDICATIONS You have been prescribed a steroid taper starting at 40mg, to be tapered down by 5mg every 3 days. Please take it as prescribed below: Please take Prednisone 40mg for 3 days, then Prednisone 35mg for 3 days, then Prednisone 30mg for 3 days, then Prednisone 25mg for 3 days, then Prednisone 20mg for 3 days, then Prednisone 15mg for 3 days, then Prednisone 10mg for 3 days, then Prednisone 5mg for 3 days, then STOP Please continue taking the rest of your home medications as prescribed. REFERRALS Please follow up with your primary care physician, Dr. Juanpablo Amezquita when you return home. Please follow up with your spring tier, Dr. Yamila Mcnamara as well. If you experience worsening shortness of breath, difficulty breathing, chest pain, persitent fever/chills, please proceed to your nearest emergency room immediately. use 2 liters of oxygen at rest and with ambulation ask your primary care doctor to consider celexa ( citalopram) for your anxiety for long-term management , if there is no contraindication for that Referrals: Juanpablo Amezquita [Other] Yamila Mcnamara MD [Other] Disposition: HOME - Home Medications Comprehensive Discharge Medication List: Ambulatory Orders Amlodipine Besylate [Norvasc -] 5 mg PO DAILY 06/20/18 Aspirin [Aspirin EC] 81 mg PO DAILY 06/20/18 Benzonatate [Tessalon Perle -] 200 mg PO TID 06/20/18 Fluticasone/Vilanterol [Breo Ellipta 200-25 Mcg INH] 1 puff IH DAILY 06/20/18 Hydroxyzine HCl 25 mg PO PRN 06/20/18 Ipratropium 0.02% Nebulizer [Atrovent 0.02% Nebulizer -] 1 neb NEB TID 06/20/18 Lisinopril [Prinivil] 20 mg PO DAILY 06/20/18 Oxybutynin Chloride [Ditropan Xl] 10 mg PO DAILY 06/20/18 Albuterol Sulfate Inhaler - [Ventolin HFA Inhaler -] 1 puff IH QID 06/22/18 predniSONE [Deltasone -] See Taper PO DAILY #108 tablet 06/26/18 This patient is new to me today: No Emergency Visit: No Critical Care patient: No - Discharge Referral Referred to [facility] No
--- NOTE | 2018-06-26 14:18 | PN ---
Teaching Attending Note Name of Resident: Say Kumar ATTENDING PHYSICIAN STATEMENT I saw and evaluated the patient. I reviewed the resident's note and discussed the case with the resident. I agree with the resident's findings and plan as documented. SUBJECTIVE: no fever or chills. No abd pain . breathing is much better OBJECTIVE: NAD, comfortable. CV: RRR Lungs: scattered wheezing. improved air entry b/l Ext: no edema or erythema ASSESSMENT AND PLAN: 72 y/o lady with h/o COPD , on home O2, CAD s/p stenting, HTN, brain aneurysm who presented with SOB and cough, she was found to have acute COPD exacerbation due to RSV. 1- Acute COPD exacerbation: improved. - cont steroid taper - Nebs and inhalers - Cont O2 supplementation . need 2 L at rest and with ambulation 2- HTN: cont norvasc and lisinopril 3-anxiety: advised to d/w celexa with her PCP for terminal clerk anxiety management, rather than short acting benzos Dispo: DC home
[2018-06-26] MEDS ORDERED: INSULIN (NOVOLOG) ASPART 100 UNITS/ML 10ML VIAL ONE (17:06)
== END 2018-06-26 19:15 | disposition home or self-care (01) | DRG 189 ==
LOC: JER 17:16 → JERBED 19:10 → J8W 23:09 → OBSVTOIN 06-23 14:47
PROVIDERS: ADMIT Internal Medicine; ATTEND Internal Medicine
DX: J96.21 Acute and chronic respiratory failure with hypoxia (principal); E87.2 Acidosis; J44.1 Chronic obstructive pulmonary disease with (acute) exacerbation; J98.11 Atelectasis; J96.22 Acute and chronic respiratory failure with hypercapnia; I25.10 Atherosclerotic heart disease of native coronary artery without angina pectoris; I10 Essential (primary) hypertension; Z99.81 Dependence on supplemental oxygen; J06.9 Acute upper respiratory infection, unspecified; Z91.14 Patient's other noncompliance with medication regimen; R00.0 Tachycardia, unspecified; F41.9 Anxiety disorder, unspecified; B97.4 Respiratory syncytial virus as the cause of diseases classified elsewhere; Z95.5 Presence of coronary angioplasty implant and graft
CPT/HCPCS: 36415; 36600; 71045-TC-FY; 80048; 80053; 82375; 82550; 82803; 83050; 83735; 84100; 84484; 85025; 85027; 87804; 87807; 93005; 93010; 94640; 94660; 94761; 99285-25; G0378